=== PATIENT | female | born 1955 | race Caucasian/White ===

== ENCOUNTER 2017-04-29 08:04 | Day surgery (SDC) | payer OTHER ==
[~2017-04-29 08:04] MED LIST: Lactated Ringers 1,000 ML IV SCH; Lidocaine 2% 5 ML SDV ONE; Midazolam 1 MG/ML 2 ML SDV IVPUSH ONE; Propofol 200 MG/20 ML SDV ONE; Sodium Chloride 0.9% 10 ML Syringe FLUSH PRN; Sodium Chloride 0.9% 2.5 ML Syringe FLUSH PRN; fentaNYL 100 MCG/2 ML SDV ONE
--- NOTE | 2017-04-29 08:17 | PCM.PREANE ---
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) Neurological: No Symptoms Other: Reports: None - Physical Assessment Height: 1.7 m Weight: 49.895 kg ASA Class: 2 Mental Status: Alert & Oriented x3 Airway Class: Mallampati = 2 Dentition: Reports: Dentures (upper and lower) Thyro-Mental Finger Breadths: 3 Mouth Opening Finger Breadths: 3 ROM/Head Extension: Full Lungs: Clear to Auscultation, Normal Respiratory Effort Cardiovascular: Regular Rate, Regular Rhythm - Allergies Allergies/Adverse Reactions: Allergies Allergy/AdvReac Type Severity Reaction Status Date / Time No Known Allergies Allergy Verified 04/24/17 11:27 - Blood Blood Available: No - Anesthesia Plan Pre-Op Medication Ordered: None - Acknowledgements Anesthesia Type Planned: MAC Pt an Appropriate Candidate for the Planned Anesthesia: Yes Alternatives and Risks of Anesthesia Discussed w Pt/Guardian: Yes Pt/Guardian Understands and Agrees with Anesthesia Plan: Yes PreAnesthesia Questionnaire Other HEENT History: upper denture Cardiovascular History: Reports: None Other Respiratory History: hx: 30+ yrs smoking, current use 1 pack per day Gastrointestinal History: Reports: Colon Polyp Other Gastrointestinal History: hx of cancer in situ of colon Other OB/BYN History: Breast Augmentation Musculoskeletal History: Reports: None Neurological History: Reports: None Psychiatric History: Reports: Anxiety Endocrine/Metabolic History: Reports: None Hematologic History: Reports: None Immunologic History: Reports: None Oncologic (Cancer) History: Other Oncologic History: hx: Carcinoma in situ of Colon polyp Other Dermatologic History: Mild psoriasis, no flare up currently - Past Surgical History Head Surgeries/Procedures: Reports: None GI Surgical History: Reports: Appendectomy, Colonoscopy (x6) Female Surgical History: Reports: Breast Implant - SUBSTANCE USE Smoking Status *Q: Former Smoker (start smoking again, 1ppd at present time) Tobacco Use Within Last Twelve Months: Cigarettes Days Per Week of Alcohol Use: 0 Number of Drinks Per Day: 0 Total Drinks Per Week: 0 Recreational Drug Use History: No - HOME MEDS Home Medications: Home Meds . [No Known Home Meds] 01/05/14 [History] - CURRENT (IN HOUSE) MEDS Current Meds: Current Medications Lactated Ringer's (Ringers, Lactated) 1,000 mls @ 125 mls/hr IV ASDIRECTED PEYMAN Sodium Chloride (Saline Flush) 10 ml FLUSH ASDIRECTED PRN PRN Reason: Keep Vein Open Sodium Chloride (Saline Flush) 2.5 ml FLUSH ASDIRECTED PRN PRN Reason: Keep Vein Open Discontinued Medications Fentanyl (Sublimaze) Confirm Administered Dose 100 mcg .ROUTE .STK-MED ONE Stop: 04/29/17 07:14 Lidocaine (Xylocaine-Mpf 2%) Confirm Administered Dose 5 ml .ROUTE .STK-MED ONE Stop: 04/29/17 07:14 Midazolam HCl (Versed 1 Mg/Ml) 1 mg IVPUSH ONETIME ONE Stop: 04/29/17 07:00 Propofol (Diprivan 20 Ml) Confirm Administered Dose 400 mg .ROUTE .STK-MED ONE Stop: 04/29/17 07:14
[2017-04-29] MEDS ORDERED: ePHEDrine 50 MG/ML SDV ONE (09:03)
[2017-04-29] MEDS ORDERED: Phenylephrine/Normal Saline 100 MCG/ML 10 ML Syringe ONE (09:20)
[2017-04-29] MEDS ORDERED: Propofol 200 MG/20 ML SDV ONE (09:35)
--- NOTE | 2017-04-29 09:53 | PCM.OPNOTE ---
- General Post-Op/Procedure Note Date of Surgery/Procedure: 04/29/17 Operative Procedure(s): Colonoscopy Findings: 1 small cecal polyp, one flat geographic appearing sessile cecal polyp, one hepatic flexture polyp 3-4 mm, one descending colon polyp, one sigmoid colon polyp. Poor prep Pre Op Diagnosis: History of multiple colon polyps Post-Op Diagnosis: same Anesthesia Technique: MAC Primary Surgeon: Arminda Torres Condition: Good
[2017-04-29 10:29] VITALS: BP 115/54
--- NOTE | 2017-04-29 20:01 | OR ---
SURGEON: ARUN CASILLAS MD DATE OF PROCEDURE: 04/29/2017 PREOPERATIVE DIAGNOSIS: History of colon polyps. POSTOPERATIVE DIAGNOSIS: Cecal polyp x2, descending colon polyp, sigmoid colon polyp, hepatic flexure polyp. PROCEDURE PERFORMED: Diagnostic colonoscopy. ANESTHESIA: MAC. EXTENT OF EXAM: To the cecum. LIMITATIONS: Poor prep. INDICATIONS: The patient is a 61-year-old female, who has had multiple colon polyps removed over the past several years. She has been having yearly colonoscopies now for 7 years due to the large amount that are discovered with each scope. She presented to my office for first time colonoscopy with me. We discussed the procedure as well as expected perioperative course. We discussed the risks, including bleeding, infection, and/or damage to surrounding structures, including perforation. The patient verbalized understanding and wishes to proceed. PROCEDURE IN DETAIL: The patient was brought to the endoscopy suite and placed in a left lateral decubitus position. A time-out was completed verifying the patient's name, age, date of , allergies, and procedure to be performed. Monitored anesthesia care was induced and continuous oxygen was provided via nasal cannula throughout the procedure. After adequate sedation was achieved, a digital rectal exam was performed. This exam was within normal limits. A well lubricated colonoscope was then inserted in the rectum and advanced under direct visualization until the level of the cecum. The cecum was identified by both visual and anatomic landmarks. A photograph was taken of the cecal cap. There was a small 1 to 2 mm polyp at the base of the cecum. This was removed using a cold biopsy forceps. The scope was then fully withdrawn while examining the color, texture, anatomy, and integrity mucosa from the cecum to the anal canal. On initial withdrawal of the scope, a sessile villous appearing mass was noted just above the cecal cap. I attempted to resect this using a cold biopsy forceps but was unable to remove all of the polyp given its sessile nature. These biopsy specimens were labeled as cecal polyp #2. The patient had colon polyps at the hepatic flexure , descending and sigmoid colon however these were able to be completely resected with the cold biopsy forcep. My exam was limited as the patient had semi-solid stool throughout the colon. I attempted to irrigate the colon to obtain better visualization. I was unable to do so successfully. The scope was then brought into the rectum and retroflexed to allow visualization of the anal canal opening. This appeared normal and a photograph was taken. The scope was then straightened out and removed from the patient. Cecum to anus time was 28 minutes. The patient was transferred to the PACU in stable condition. Of note, the patient had ST elevation during the case but after anesthetic was withdrawn, the EKG tracing returned normal. An EKG performed in the PACU showed no changes from her preoperative EKG. ENDOSCOPIC FINDINGS: Cecal polyp x2, descending colon polyp, sigmoid colon polyp, hepatic flexure polyp. RECOMMENDATIONS: 1. Given the sessile cecal lesion that I was unable to fully resect, I will refer the patient to a colorectal surgeon in [place] for possible re- scoping and attempted resection. Given her poor prep, a 2nd colonoscopy should be performed in less than a year to ensure there were no other lesions within the colon. 2. The patient had transient ST elevations during this case. I will have her establish a primary care provider here who can discuss possible stress testing in the near future. PAKO VINSON /[id number] VIVIANE
== END 2017-04-29 10:25 | disposition home or self-care (01) ==
LOC: MW.SDS 08:04
PROVIDERS: ATTEND Surgery
DX: D12.0 Benign neoplasm of cecum (principal); D12.3 Benign neoplasm of transverse colon; D12.4 Benign neoplasm of descending colon; K63.5 Polyp of colon; F17.210 Nicotine dependence, cigarettes, uncomplicated; Z85.038 Personal history of other malignant neoplasm of large intestine; Z86.010 Personal history of colon polyps; Z90.49 Acquired absence of other specified parts of digestive tract; Z98.890 Other specified postprocedural states
CPT/HCPCS: 45380; 93005; J2250; J3010; J7120; 88305; J2704